=== PATIENT | female | born 2000 | race Caucasian/White ===

== ENCOUNTER 2023-10-26 13:57 | Emergency (ER) | payer OTHER, BC ==
[~2023-10-26] VITALS: Ht 162.6 cm; Wt 77.3 kg
[2023-10-26 14:09] VITALS: TEMP 97.8
[2023-10-26 15:11] LABS: BASO % 0.4 % (0.0-2.0); GRAN # 6.9 K/mm3 (1.4-6.5); GRAN % 76.7 % (42.2-75.2); HEMATOCRIT 37.1 % (37.0-47.0); HEMOGLOBIN 12.4 g/dl (12.5-16.0); LYMPH # 1.6 K/mm3 (1.2-3.4); LYMPH % 17.3 % (20.0-51.0); MEAN CELL VOLUME 84 fl (80.0-100.0); MEAN CORPUSCULAR HEMOGLOBIN 28 pg (27-31); MEAN CORPUSCULAR HGB CONC 33 g/dl (33.0-37.0); MEAN PLATELET VOLUME 10.9 fl (7.4-10.4); MONO # 0.5 K/mm3 (0.1-0.6); PLATELET COUNT 248 K/mm3 (130-400); RED BLOOD COUNT 4.43 M/mm3 (4.10-5.30); REDCELL DISTRIBUTION WIDTH-CV 13.6 % (11.5-14.5)
[2023-10-26 15:17] LABS: URINE APPEARANCE TURBID (CLEAR/HAZY); URINE BLOOD 3+ (NEGATIVE); URINE COLOR RED (YELLOW); URINE GLUCOSE NEGATIVE (NEGATIVE); URINE KETONE NEGATIVE (NEGATIVE); URINE NITRATE NEGATIVE (NEGATIVE); URINE PROTEIN(semi-quant) 2+ (NEGATIVE); URINE UROBILINOGEN 0.2 E.U/dL (0.2-1.0)
[2023-10-26] MEDS ORDERED: Azithromycin 250 MG TAB PO ONE (15:45)
[2023-10-26 15:47] LABS: URINE RBC >50 /hpf (0-2)
[2023-10-26 15:48] LABS: URINE BACTERIA MODERATE /hpf (NONE SEEN)
[2023-10-26 16:03] LABS: COLLECTION METHOD CLEAN CATCH
[2023-10-26] MEDS ORDERED: MACROBID 1100 MG/CAP PO (16:18)
[2023-10-26 16:46] VITALS: BP 116/69; PULSE 80
== END 2023-10-26 16:46 | disposition home or self-care (01) ==
LOC: COL.ER 13:57
PROVIDERS: Physician Assistant
DX: O20.9 Hemorrhage in early pregnancy, unspecified (principal); Z3A.14 14 weeks gestation of pregnancy